=== PATIENT | female | born 1990 ===

== ENCOUNTER → 2024-02-21 16:04 | Outpatient (CLI) | payer OTHER, SELFPAY ==
--- NOTE | 2024-02-21 16:09 | DI.US.S_ITS ---
PROCEDURE: US OB >= 14 WEEKS FETUS INDICATIONS: 20 week anatomy scan OUTSIDE/PRIOR DATING DATA: Last menstrual period (LMP): 09/29/2023. LMP-based estimated date of delivery (YANG): 07/05/2024. TECHNIQUE: Real-time scanning was performed of the fetus, with image documentation and biometric measurements. COMPARISON: None. FINDINGS: General: A single living intrauterine gestation is present. Presentation: Breech. Placenta: Placental position is anterior. The placenta lower edge is 1 centimeter from the internal os on transvaginal images. Amniotic fluid index: 11.8 cm, normal range is 5-24 cm. Single deepest vertical pocket is 3.7 cm. heart rate: 145 beats per minute. Maternal cervical canal: 4.2 cm long. Normal lower limit is 2.5 cm. biometrics: Biparietal diameter: 4.8 centimeters, 20 weeks and 3 days Head circumference: 17.9 centimeters, 20 weeks and 2 days Abdominal circumference: 15.8 centimeters, 20 weeks and 6 days Femur length: 3.4 centimeters, 20 weeks and 5 days Clinically estimated gestational age: 20 weeks and 5 days Composite gestational age from present scan: 20 weeks and 4 days Estimated weight and percentile: 374 grams, 46 percentile Anatomic survey: Neuro: Ventricles are non-dilated at less than 10 mm. Cisterna magna is normal at 3-11 mm. Cerebellum is normal in size and morphology. Nuchal skin fold: Normal at less than 6 mm between 14-21 weeks gestational age. Face: Nose and lips, facial profile are normal. Spine: The sacral skin line is seen. However the upper spine is not well seen. Heart: 4-chambered heart is present, with normal ventricular outflow tracts. Diaphragm: Diaphragm is intact. Stomach: Left-sided stomach is present. Kidneys: No hydronephrosis. Normal is less than 5 mm in 2nd trimester, less than 7 mm in 3rd trimester. Cord: 3-vessel cord has orthotopic insertion. Bladder: Normal in size. Extremities: All 4 extremities identified. IMPRESSION: Living intrauterine gestation at 20 weeks and 5 days. Biometry is concordant. The upper spine is not well seen. The placenta is also 1 centimeter from the internal os. Consider follow-up imaging. Dictated by: Mariano Antony M.D. on 02/22/2024 at 9:44 Approved by: Mariano Antony M.D. on 02/22/2024 at 9:49
== END ==
PROVIDERS: Referring Provider Nurse Practitioner Obstetrics & Gynecology; Visit Provider Nurse Practitioner Obstetrics & Gynecology
DX: Z34.02 Encounter for supervision of normal first pregnancy, second trimester (principal); Z3A.20 20 weeks gestation of pregnancy
CPT/HCPCS: 76811

== ENCOUNTER → 2024-04-10 15:58 | Outpatient (CLI) | payer OTHER, SELFPAY ==
--- NOTE | 2024-04-10 15:58 | DI.US.S_ITS ---
PROCEDURE: US OB FOLLOW UP INDICATIONS: RE-EVALUATE SPINE, LOW-LYING PLACENTA OUTSIDE/PRIOR DATING DATA: Last menstrual period (LMP): 09/29/2023. LMP-based estimated date of delivery (YANG): 07/05/2024. First dating scan (date and location): None available. Estimated date of delivery (YANG) from first dating scan: Not applicable. The calculations are made using the working YANG of 07/05/2024. TECHNIQUE: Real-time scanning was performed of the fetus, with image documentation. Endovaginal scanning: Not performed COMPARISON: None. FINDINGS: A single living intrauterine gestation is present. Presentation: Vertex. Placenta: Placental position is anterior, without previa. Amniotic fluid index: 13.0 cm, normal range is 5-24 cm. Single deepest vertical pocket is 3.7 cm. heart rate: 150 beats per minute. Maternal cervical canal: 4.2 cm long. Normal lower limit is 2.5 cm. Clinically estimated gestational age: 27 weeks 5 days Other: Inferior edge of the placenta is 2.9 cm from the internal cervical os. spine is within normal limits. IMPRESSION: 1. Living early 3rd trimester intrauterine with no sonographic evidence of complications. 2. Resolution of low lying placenta. 3. Normal spine noted. Dictated by: Marco Thomas M.D. on 04/10/2024 at 19:39 Approved by: Marco Thomas M.D. on 04/10/2024 at 19:42
== END ==
PROVIDERS: Referring Provider Nurse Practitioner Obstetrics & Gynecology; Visit Provider Nurse Practitioner Obstetrics & Gynecology
DX: Z34.02 Encounter for supervision of normal first pregnancy, second trimester (principal); Z3A.27 27 weeks gestation of pregnancy
CPT/HCPCS: 76816

== ENCOUNTER 2024-07-10 11:15 | Inpatient (IN) | payer OTHER, SELFPAY ==
[2024-07-10] MEDS: LACTATED RINGERS 1,000 ML 100 ML IV ×2 (11:37→12:44)
--- NOTE | 2024-07-10 11:51 | P.HPOB_ITS ---
OB HPI Date/Time Date of admission: 07/10/24 Date Patient Seen: 07/10/24 Time Patient Seen: 11:30 History of Present Condition Chief complaint: LABOR Preadmission Labs Last OB Lab Results: 2 Blood Type Pending 07/10/24 11:39 Antibody Screen Pending 07/10/24 11:39 Hct Pending 07/10/24 11:39 Hgb Pending 07/10/24 11:39 Objective Labs 07/10/24 11:39 Assessment and Plan Time-Based Coding :: [TOTAL MINUTES] spent with patient and on the chart (including review of chart, obtaining history, exam, reviewing outside data, placing orders, documenting exam and treatment plan, and counseling patient) on [DATE].
--- NOTE | 2024-07-10 11:52 | P.HPOB_ITS ---
OB HPI Date/Time Date of admission: 07/10/24 Date Patient Seen: 07/10/24 Time Patient Seen: 11:30 History of Present Condition Chief complaint: LABOR : 2 Para: 0 Estimated Date of Delivery: 07/05/24 Estimated Gestational Age (weeks): 40.5 Narrative: Cindy Carrera is a 34 year old female at 40 weeks 5 days by sure LMP and concordant with 11 week US. Cindy began ignacia intermittently yesterday (07/09/2024) AM. She labored at home until this AM when contractions became stronger and more frequent and she decided she wanted to come in. She denies vaginal leaking of fluid but has had some bloody show. She reports good movement. Cindy is working hard through contractions and requesting epidural on arrival to hospital. She is accompanied by her and sister. care with CNMs uncomplicated. History of Present care: good care, initiated at week # (11), number of visits (10) and pounds weight gain (35) Dating criteria: LMP confirmed by 1st trimester US Ultrasounds: normal 1st trimester US and normal mid trimester US Obstetrical complications: none Medical complications: none Preadmission Labs Blood type: A (+) positive -: Antibody screen: negative, Cystic fibrosis screen: negative, GBS status: negative, HBsAG: negative, HIV: negative, HSV 1: unknown (Not screened), HSV 2: unknown (Not screened) and RPR/VDLR: negative -: Chlamydia screen: not detected and Gonorrhea screen: not detected -: Rubella: immune and Varicella: immune HCT: 33.3 HCAB: negative PAP: Normal Cell-free DNA: NIPT negative Narrative: 2-hr GTT: 87/123/99 Prior (ies) History: (SAB) Evaluation Evaluation Baseline heart rate: 130 Variability: Moderate (11-25) monitor accelerations: Absent Monitor Decelerations: Absent Contraction Frequency (minutes): 2 (2-3) Uterine Contraction Intensity: Moderate Status: Category l Dilation (cm): 9 Effacement (%): 100 Dilation: >/=5 cm Effacement: >/=80% station: -1 Position of cervix: mid Consistency: soft Yost score: 11 Comments: CE at 1315 after epidural. [facility] Family History (Updated 07/10/24 @ 12:08 by Snow Rapp, ZEO, DIRECTOR OF COLLECTIONS AND ARCHIVES) Father Diabetes mellitus Hypertension Sister Diabetes mellitus Mother Hypertension Social History Smoking Status: Never smoker Meds Home Medications and Allergies Home Medications Medication Instructions Recorded Confirmed Type aspirin 81 mg tablet,delayed 81 mg PO 1XD 07/10/24 07/10/24 History release (Adult Low Dose Aspirin) Allergies Allergy/AdvReac Type Severity Reaction Status Date / Time No Known Drug Allergies Allergy Verified 07/10/24 14:04 Review of Systems Review of Systems ROS: Yes All systems reviewed with the patient and are negative except as otherwise documented OB Exam Vital signs Blood Pressure: 117/73 Pulse Rate: 105 Temperature: 98.0 F Presentation: vertex Amniotic Fluid: no fluid Objective Labs 07/10/24 11:39 Assessment and Plan Assessment and Plan Assessment and Plan narrative: Assessment: at 40w5d in Active labor AMA Rh positive Membranes intact No indication for GBS prophylaxis FHR category I Plan Admit with routine orders Epidural anesthesia as desired Continuous monitoring Encourage rest and position changes Reassess PRN Time-Based Coding :: [TOTAL MINUTES] spent with patient and on the chart (including review of chart, obtaining history, exam, reviewing outside data, placing orders, documenting exam and treatment plan, and counseling patient) on [DATE].
[2024-07-10 11:53] LABS: Add Manual Diff / Slide Review NO; Basophils Absolute Auto 100 /uL (0-100); Basophils Percent Auto 0.4 % (0-2); Eosinophils Absolute Auto 0 /uL (0-450); Eosinophils Percent Auto 0.1 % (2-4); Hematocrit 37.4 % (36-46); Hemoglobin 12.7 g/dL (12.0-16.0); Lymphocytes Absolute Auto 1000 /uL (1100-4500); Lymphocytes Percent Auto 7.1 % (25-40); Mean Corpuscular HGB Conc 33.9 % (30-36); Mean Corpuscular Hemoglobin 30.7 PG (26-34); Mean Corpuscular Volume 90.6 fL (80-100); Monocytes Absolute Auto 600 /uL (0-900); Monocytes Percent Auto 4.1 % (3-14); Neutrophils Absolute Auto 12700 /uL (1500-7000); Neutrophils Percent Auto 88.3 % (50-75); Platelet Count 185 X10^3/uL (150-400); Red Blood Cell Count 4.13 X10^6/uL (4.0-5.2); Red Cell Distribution Width 13.8 % (11.6-14.8); White Blood Cell Count 14.4 X10^3/uL (4.5-11.0)
[2024-07-10 12:10] VITALS: BP 117/73; PULSE 105; TEMP 36.7
--- NOTE | 2024-07-10 12:32 | PM.AN.REGBLK ---
Regional Block Pre-procedure Procedure: Continuous Lumbar Epidural for L&D Attending OB provider: Snow Rapp PMH/ROS narrative: , 40 5/7 weeks, requesting labor epidural Neg asthma, DM, HTN, GERD. Exam narrative: Mall II, good neck ROM. ASA Class: II Labs: Hct 37.4 % (36-46) 07/10/24 11:39 Plt Count 185 X10^3/uL (150-400) 07/10/24 11:39 Medications: Current Medications Generic Name Dose Route Start Last Admin Trade Name Freq PRN Reason Stop Dose Admin Calcium Carbonate 1,000 mg 07/10/24 11:29 Calcium Carbonate 500 Mg Tab PO Q2HR PRN Dyspepsia Carboprost Tromethamine 250 mcg 07/10/24 11:29 Carboprost 250 Mcg/Ml Ampul IM Q90M PRN Bleeding Oxytocin/Lactated Ringer's 30 unit in 500 mls @ 200 mls/hr 07/10/24 11:29 Oxytocin Premix IV CONT PRN Bleeding Protocol Tranexamic Acid 1,000 mg/ 100 mls @ 600 mls/hr 07/10/24 11:29 Sodium Chloride IV NOW PRN Bleeding Lactated Ringer's 1,000 mls @ 100 mls/hr 07/10/24 11:30 Lactated Ringers IV 07/10/24 21:29 CONT GALE Lidocaine HCl 20 ml 07/10/24 11:29 Lidocaine 1% 20 Ml INJ INTRA-OP PRN Post Delivery Methylergonovine Maleate 0.2 mg 07/10/24 11:29 Methylergonovine 0.2 Mg Tablet PO Q6HR PRN Heavy Bleeding Methylergonovine Maleate 0.2 mg 07/10/24 11:29 Methylergonovine 0.2 Mg/Ml Vial IM NOW PRN Bleeding Mineral Oil 30 ml 07/10/24 11:29 Mineral Oil 30 Ml Udc TOP PRN PRN Version Misoprostol 800 mcg 07/10/24 11:29 Misoprostol 200 Mcg Tablet WA NOW PRN Bleeding Misoprostol 400 mcg 07/10/24 11:29 Misoprostol 200 Mcg Tablet SL NOW PRN Bleeding Naloxone HCl 0.2 mg 07/10/24 11:29 Naloxone 0.4 Mg/Ml Vial IV Q2MIN PRN Opiate Reversal Ondansetron HCl 4 mg 08/12/24 11:29 Ondansetron 4 Mg/2 Ml Inj IV Q4HR PRN Nausea And Vomiting Oxytocin 10 unit 07/10/24 11:29 Oxytocin 10 Unit/Ml Vial IM NOW PRN Bleeding Allergies: NKDA Procedure Insertion date: 07/10/24 Insertion time: 11:58 Prep/Local: 1% lidocaine (chlorahexidine skin prep) Interspace: L4-5 Patient position: sitting Needle: 17 gauge Tuohy Loss of resistance with: saline VINCENT at (cm): 8 Catheter placed at SKIN (cm): 15 Catheter in SPACE (cm): 7 Sensory level: T10 Initial Medications TEST DOSE time: 12:12 BOLUS DOSE time: 12:22 BOLUS DOSE (mL): 5 BOLUS DOSE med: 0.125% bupivacaine with fentanyl 10 mcg/mL Infusion Initial rate (mL/hr): 10
--- NOTE | 2024-07-10 15:35 | PM.OBPNLAB ---
Date/Time Date Patient Seen: 07/10/24 Time Patient Seen: 15:30 Pain Control Pain control: epidural Comments: Cindy is getting good relief from epidural and feeling more rested. She does not feel that rectal pressure has increased. and sister present and supportive. Vitals BP: 126/74 HR: 88 bpm SPO2: 98% Temp: 36.1 C temporal Pelvic Exam Dilation (cm): 10 Effacement (%): 100 station: 0 Amniotic membrane status: Ruptured Comments: SROM 1642: Blood-stained fluid Contractions Contractions on admission: regular Monitor mode: External Contraction frequency (min): 3 (3-4) Contraction duration (min): 1 (1-1.5) Contraction pattern: Regular Contraction intensity: Moderate Status status: Category ll Heart Rate Baseline: 125 Monitor Accelerations: Present Monitor Decelerations: Early and Variable Monitor Variability: Moderate Assessment and Plan Assessment: active labor Plan: continuous present management Comments: Assessment: Second stage AMA Adequate epidural anesthesia SROM x 1 hour, clear fluid FHR category II Plan: Cindy given option to try pushing or to wait an hour and rest. Cindy elected to rest for one more hour. Encourage rest and position changes Continuous monitoring Reassess in 1 hour or sooner PRN
[2024-07-10] MEDS: FENT 2MCG/ML BUPIV 0.125% EPI 200 MCG/100 ML PLAST..BAG 10 MCG EPIDURAL (18:26)
--- NOTE | 2024-07-10 19:53 | PM.OBPNLAB ---
Date/Time Date Patient Seen: 07/10/24 Time Patient Seen: 19:30 Pain Control Pain control: epidural Comments: Cindy is working hard pushing, well supported by sister and . Epidural is working well. Has been actively pushing for just over 2 hours. Vitals BP: 123/66 HR: 93 bpm SpO2: 100% Temp: 36.7 C temporal Pelvic Exam Dilation (cm): 1 Effacement (%): 100 station: +1 Amniotic membrane status: Ruptured Comments: Blood-tinged fluid Contractions Monitor mode: External Contraction frequency (min): 3 (3-4) Contraction duration (min): 1 (.5-1) Contraction pattern: Regular Contraction intensity: Strong/Firm Status status: Category ll Heart Rate Baseline: 135 Monitor Accelerations: Absent Monitor Decelerations: Early and Variable Monitor Variability: Moderate Assessment and Plan Assessment: active labor Plan: continuous present management Comments: Assessment: Second stage SROM x 5 hours without signs of infection Adequate epidural anesthesia FHR category II Plan: Continue present management of second stage labor Continuous monitoring Position changes PRN Reassess PRN. Will consult backup OB if second stage reaches 4 hours.
--- NOTE | 2024-07-10 21:30 | PM.OBPNLAB ---
Date/Time Date Patient Seen: 07/10/24 Time Patient Seen: 21:30 Pain Control Pain control: epidural Comments: Cindy has been pushing for 4 hours. Refuses vacuum at this time. and mother at bedside. Vitals BP: 112/59 HR: 95 bpm SPO2: 99% Temp: 36.9 C temporal Pelvic Exam Dilation (cm): 10 Effacement (%): 100 station: +1 Amniotic membrane status: Ruptured Comments: Bloody fluid Contractions Monitor mode: External Contraction frequency (min): 3 (3-4) Contraction pattern: Regular Contraction intensity: Strong/Firm Status status: Category ll Heart Rate Baseline: 145 Monitor Accelerations: Absent Monitor Decelerations: Absent and Variable Monitor Variability: Moderate Comments: Periodic, moderate variables Assessment and Plan Assessment: active labor Plan: continuous present management Comments: Assessment: Prolonged second stage SROM x 7 hours, no signs of infection FHR Category II Plan: Vacuum delivery recommended Consulted backup OB, Dr. Leonardo, who is comfortable with continued pushing for 1 more hour if MOB and baby continue to be stable. Continuous monitoring Reassess PRN.
--- NOTE | 2024-07-10 23:28 | PM.OBPNLAB ---
Date/Time Date Patient Seen: 07/10/24 Time Patient Seen: 23:28 Pain Control Pain control: epidural (but still having pain with vaginal exams) Pelvic Exam Dilation (cm): 10 Effacement (%): 100 station: +2 Amniotic membrane status: Ruptured Comments: Cindy continued to push well but baby did not continue to descend. When presented with options for vacuum, forceps or delivery, she didn't like any of the options. Dr. Leonardo felt that a vacuum delivery was not a safe option; Cindy spent some time with her and sister, and decided on attempting a forceps delivery with improved anesthesia. VS: BP 120/67 HR 90 bpm Temp: 36. C Contractions Monitor mode: External Contraction frequency (min): 3 (3-4) Contraction duration (min): 1 Contraction pattern: Regular Contraction intensity: Strong/Firm Status status: Category ll Heart Rate Baseline: 140 Monitor Accelerations: Present Monitor Decelerations: Variable Monitor Variability: Moderate Assessment and Plan Assessment: active labor Plan: other Comments: at 40w5d GBS neg Rh pos Prolonged 2nd stage labor Asked Dr. Leonardo to come in for assessment/evaluation/to help decide on plan of care. She recommends forceps or primary section. See Dr. Leonardo's notes for continued plan of care.
[2024-07-11] MEDS: OXYTOCIN 10 UNIT/ML VIAL IM (01:44)
[2024-07-11] MEDS: METHYLERGONOVINE 0.2 MG/ML VIAL IM (01:44)
[2024-07-11] MEDS: TRANEXAMIC ACID 1,000 MG in SODIUM CHLORIDE 0.9% 100 ML 600 MG IV (01:44)
--- NOTE | 2024-07-11 01:44 | P.PCNOB_ITS ---
Events: Other (Normal care with CNM) Labor & Delivery Delivery date: 07/11/24 Intrapartal Events: Prolonged 2nd Stage > 2.5 hours (9 hours) Cervical ripening method: none Induction method: none Delivery monitor: external FHT Route of delivery: forceps (performed by Dr. Leonardo - see consultation note) Indication for instrumentation: other (prolonged 2nd stage) L&D Laceration Description: Perineal - 1st Degree and Vaginal - 2nd Degree (with arteriole bleeding x 2 requiring repair) Delivery repair: vicryl Quantitative Blood Loss: 1,553 Anesthesia Type: Epidural (increased with fentanyl and lidocaine derivative for forceps delivery. See anesthesia note for specifics.) Complications: Prolonged 2nd stage Hemorrhage r/to uterine atony and tissue damage Narrative: Active labor progressed well. Cindy felt ready to push at 1720, after over two hours of laboring down per her preference. She pushed actively for 7 hours for a total 2nd stage of 9 hours; OB consulted at 4 hours and evaluated patient at 6 hours of active pushing. FHR was category II throughout 2nd stage with moderate variability and accelerations throughout, variables down to 90s. Following use of forceps by Dr. Leonardo to , NSVB of baby at 0025, shoulders delivered easily. Baby was placed on maternal abdomen to stimulate and dry. IV pitocin initiated for AMTSL. Apgars 9/9. Mom and baby remained skin to skin while cord was cut and placenta was delivered. Placenta delivered spontaneously with maternal efforts and appeared to be intact. 3 vessel cord clamped and cut by FOB at approximately 10 minutes of life after cord pulsing had slowed. Bleeding minimal until separation gush and then bleeding increased to concerning after delivery of placenta; uterus was boggy at U-1. IM methergine given, then realized IV pitocin was running onto the floor and gave IM pitocin, then IV TXA, and 800 mcg misoprostol buccally given and fundus massaged continuously throughout to maintain firmness. When TXA was completed, attached and ran IV pitocin. Unable to collect cord blood for blood typing despite efforts after managed PPH. Perineum inspected and 1st degree perineal laceration found, with arteriole bleeding x 2, requiring repair with 3-0 vicryl. Blood loss measured and estimated loss is 1553 mL. Cindy was shakey, febrile, and nauseous following delivery and received Zofran and IV Tylenol. Unable to measure accurate blood pressures d/t maternal shakiness. Once shakiness subsided, BP normal. CBC ordered STAT with plan to repeat in 8 hours. Mom and baby left stable and attempting to breastfeed. Snow LARES, CNM, IBCLC [place] Baby 1: Infant gender: Female Presentation: vertex Position: Right Occiput Anterior Placenta delivery description: Spontaneous Cord Vessel Description: 3 Vessels score (1 min): 8 score (5 min): 9 weight: 3.425 kg Plan for aftercare: Routine care and Other (Serial CBC r/to PPH)
[2024-07-11] MEDS: ACETAMINOPHEN IV 1,000 MG/100 ML VIAL 400 MG IV (01:45)
[2024-07-11] MEDS: OXYTOCIN PREMIX 30 UNIT/500 ML PLAST..BAG 200 UNIT IV (01:45)
[2024-07-11] MEDS: ONDANSETRON 4 MG/2 ML INJ IV (01:45)
[2024-07-11] MEDS: miSOPROStoL 200 MCG TABLET 800 MCG PR (01:46)
[2024-07-11 02:22] LABS: Add Manual Diff / Slide Review NO; Basophils Absolute Auto 0 /uL (0-100); Basophils Percent Auto 0.2 % (0-2); Eosinophils Absolute Auto 0 /uL (0-450); Hematocrit 35.8 % (36-46); Lymphocytes Absolute Auto 1200 /uL (1100-4500); Lymphocytes Percent Auto 6.6 % (25-40); Mean Corpuscular HGB Conc 33.5 % (30-36); Mean Corpuscular Hemoglobin 30.2 PG (26-34); Mean Corpuscular Volume 90.2 fL (80-100); Monocytes Absolute Auto 1100 /uL (0-900); Monocytes Percent Auto 6.3 % (3-14); Neutrophils Absolute Auto 15600 /uL (1500-7000); Neutrophils Percent Auto 86.9 % (50-75); Platelet Count 187 X10^3/uL (150-400); Red Blood Cell Count 3.96 X10^6/uL (4.0-5.2); Red Cell Distribution Width 14.1 % (11.6-14.8); White Blood Cell Count 17.9 X10^3/uL (4.5-11.0)
[2024-07-11] MEDS: LANOLIN OINT 7 GM 1 APPLIC TOP (08:21)
[2024-07-11] MEDS: IBUPROFEN 600 MG TABLET PO ×2 (08:52→15:34)
[2024-07-11 11:15] LABS: Add Manual Diff / Slide Review NO; Basophils Absolute Auto 0 /uL (0-100); Basophils Percent Auto 0.3 % (0-2); Eosinophils Absolute Auto 100 /uL (0-450); Eosinophils Percent Auto 0.5 % (2-4); Hematocrit 30.7 % (36-46); Hemoglobin 10.4 g/dL (12.0-16.0); Lymphocytes Absolute Auto 2000 /uL (1100-4500); Lymphocytes Percent Auto 13.3 % (25-40); Mean Corpuscular HGB Conc 33.7 % (30-36); Mean Corpuscular Hemoglobin 30.7 PG (26-34); Mean Corpuscular Volume 90.9 fL (80-100); Monocytes Absolute Auto 1200 /uL (0-900); Neutrophils Absolute Auto 11600 /uL (1500-7000); Neutrophils Percent Auto 77.9 % (50-75); Platelet Count 144 X10^3/uL (150-400); Red Blood Cell Count 3.38 X10^6/uL (4.0-5.2); Red Cell Distribution Width 14.1 % (11.6-14.8); White Blood Cell Count 14.9 X10^3/uL (4.5-11.0)
[2024-07-11] MEDS: WITCH HAZEL/GLYCERIN PADS 1 EACH TOP (15:34)
[2024-07-11] MEDS: DERMOPLAST SPRAY 20% 60 ML 1 SPRAY TOP (15:35)
--- NOTE | 2024-07-11 18:28 | PM.OBDS.1 ---
Discharge Providers Provider Date of admission: 07/10/24 11:15 Discharge Date: 07/12/24 Primary care physician: Vu PAT Provider Consults: 07/10/24 11:30 Consult to Anesthesiology Urgent Comment: Consulting Provider: Anesthesiologist Reason for consultation: Epidural Has provider been notified: Yes 07/12/24 01:15 Consult to Drywall Finishing Foreman Routine Comment: 07/12/24 05:12 Consult to Drywall Finishing Foreman Routine Comment: Discharge provider: Snow Rapp CNM, ARNP Summary Hospital Course Date Patient Seen: 07/12/24 Time Patient Seen: 08:47 Diagnoses: O80 Hospital Course: Cindy had a forceps-assisted vaginal delivery on 07/11/2024. She is ambulating and voiding independently. She has noticed some nipple pain and is continuing to work on improving the baby's latch. Her pain has been well managed with q6 600 mg ibuprofen. Her bleeding is scant and fundus is firm -1 the umbilicus. Peripartum Data Infant Delivery Method: Assisted Delivery (Forceps) Laceration Description: Perineal - 2nd Degree Episiotomy description: None complications: uterine atony (Hemorrhage) and other (bleeding laceration) [place] 1: Gender: Female Disposition of : home Discharge Diagnosis (1) (normal spontaneous vaginal delivery): Start Date: 07/11/24 Status: Acute (2) Lactating mother: Status: Acute (3) Perineal laceration during delivery: Status: Acute (4) hemorrhage: Status: Acute Status at Discharge Cognitive/behavioral status at discharge: at baseline, oriented Functional status at discharge: independent ambulation Overall status at discharge: patient is progressing back to baseline Time Spent with Patient Time attestation: Total time spent providing and/or coordinating discharge services: Time spent: Greater than 30 minutes Objective Labs 07/11/24 11:08 Labs: Laboratory Results - last 24 hr 07/11/24 07/11/24 02:02 11:08 WBC 17.9 H 14.9 H RBC 3.96 L 3.38 L Hgb 12.0 10.4 L Hct 35.8 L 30.7 L MCV 90.2 90.9 MCH 30.2 30.7 MCHC 33.5 33.7 RDW 14.1 14.1 Plt Count 187 144 L Neut % (Auto) 86.9 H 77.9 H Lymph % (Auto) 6.6 L 13.3 L [place] % (Auto) 6.3 8.0 Eos % (Auto) 0.0 L 0.5 L Baso % (Auto) 0.2 0.3 Neut # (Auto) 54209 H 48680 H Lymph # (Auto) 1200 2000 [place] # (Auto) 1100 H 1200 H Eos # (Auto) 0 100 Baso # (Auto) 0 0 Exam Vital Signs (past 8 hours): BP 107/68 HR: 86 bpm Temp 98.2 Other: Fundus firm at U, midline. Lochia light, rubra Perineum 1st degree laceration with minimal edema Discharge Plan Discharge Plan Patient Disposition: Home Discharge orders & Medications Prescriptions: Discontinued aspirin [Adult Low Dose Aspirin] 81 mg Tablet,Delayed Release (Dr/Ec) 81 mg PO 1XD Medication counseling provided by Pharmacist: No Follow up/Referrals: [facility] [Primary Care Provider] - Snow Rapp CNM, ARNP [[facility] [employer]] - 2 Weeks (2 weeks and 6 weeks as scheduled; patient has in e-mail) Diet/Activity/Treatments Diet: Regular Diet comment: Hydrate and high fiber diet Activity: Rest x 2 weeks Skin/Wound/Dressing Care Skin care: Report to your healthcare provider any signs of infection, such as:: chills, fever, increased pain, unusual drainage and unusual redness Visit Report/Discharge Packet Stand Alone Forms: Patient Portal/API, Stroke Signs & Symptoms Discharge Data Primary Care Provider: [facility]
[2024-07-12] MEDS: IBUPROFEN 600 MG TABLET PO ×2 (04:52→11:59)
[2024-07-12] MEDS: ACETAMINOPHEN 325 MG TABLET 650 MG PO (11:59)
== END 2024-07-12 14:19 | disposition home or self-care (01) | DRG 806 ==
PROVIDERS: Admitting Provider Advanced Practice Midwife; Referring Provider Advanced Practice Midwife; Visit Provider Advanced Practice Midwife
DX: O63.1 Prolonged second stage (of labor) (principal); O72.1 Other immediate postpartum hemorrhage; Z37.0 Single live birth; O76 Abnormality in fetal heart rate and rhythm complicating labor and delivery; O70.0 First degree perineal laceration during delivery; Z3A.40 40 weeks gestation of pregnancy
CPT/HCPCS: 36415; 59050; 85025; 86850; 86900; 86901; G0379; J0136; J2210; J2405; J2590; J3010; S0191